=== PATIENT | female | born 1940 | race Caucasian/White ===

== ENCOUNTER 2018-10-22 05:09 | Day surgery (SDC) | payer OTHER ==
[~2018-10-22 05:09] MED LIST: FORTAMET500 MG PO; GABAPENTIN300 MG PO; NAPR500T14 PO; PAROXET PO
[2018-10-22] MEDS ORDERED: KEFLEX250 MG PO (11:08)
== END 2018-10-22 13:20 | disposition home or self-care (01) ==
LOC: CIR.AMB 05:09
DX: N32.81 Overactive bladder (principal); N39.41 Urge incontinence
CPT/HCPCS: 64590; C1767